=== PATIENT | female | born 1975 | race Caucasian/White ===

== ENCOUNTER → 2020-06-22 | Outpatient (CLI) | payer BC | LOC: LAB 05:19 | DX: U07.1 COVID-19 (principal) | CPT/HCPCS: U0002 ==

== ENCOUNTER → 2021-12-20 | Outpatient (CLI) | payer BC ==
[2021-12-20 18:30] LABS: HEMOGLOBIN 14.4 gm/dl (12.3-15.3); RED BLOOD COUNT 4.48 M/UL (4.00-5.10); WHITE BLOOD COUNT 5.2 K/UL (4.5-11.0)
[2021-12-20 19:01] LABS: BUN/CREATININE RATIO 17 (0-10)
[2021-12-22 08:14] LABS: VITAMIN D, 25-HYDROXY 39.6 ng/mL (30.0-100.0)
[2021-12-22 10:14] LABS: HCV ANTIBODY <0.1 (0.0-0.9)
[2021-12-22 11:14] LABS: CREATININE, URINE 181.9 mg/dL (Not Estab.)
[2021-12-22 12:14] LABS: ANTISTREPTOLYSIN O AB 169.8 IU/mL (0.0-200.0); RHEUMATOID ARTHRITIS FACTOR <10.0 IU/mL (<14.0)
== END ==
LOC: LAB 17:54
PROVIDERS: Nurse Practitioner; Nurse Practitioner Family
DX: Z13.1 Encounter for screening for diabetes mellitus (principal); G43.009 Migraine without aura, not intractable, without status migrainosus; M54.2 Cervicalgia; M25.50 Pain in unspecified joint; E55.9 Vitamin D deficiency, unspecified; R06.02 Shortness of breath; R53.83 Other fatigue
CPT/HCPCS: 80053; 80061; 81001; 82043; 82550; 82553; 82570; 82607; 82728; 83036; 83540; 83550; 83880; 84439; 84443; 84484; 84550; 85025; 85652; 86038; 86060; 86140; 86141; 86431; 86803; 87086